=== PATIENT | male | born 1965 | race Caucasian/White ===

== ENCOUNTER 2018-12-16 19:34 | Emergency (ER) | payer OTHER, SELFPAY ==
[2018-12-16 19:35] VITALS: BP 141/74; PULSE 77; RESP 15; TEMP 36.4; O2SAT 96; BMI 32.9
--- NOTE | 2018-12-16 20:57 | ED.DCSUM_ITS ---
- ER Visit Summary Date of Service: 12/16/18 Chief Complaint: Laceration History of Present Illness: The patient is a 53 M with a laceration to his left thumb. He is right-hand dominant. This was when he was cutting watermelon. Unsure of his tetanus status. Physical Examination: 1 cm partial-thickness laceration at the left thumb distal phalanx not involving the nail. Test Results: None indicated Emergency Department Course and Treatment: Patient had washed his wound with soap and water already. This was closed with tissue adhesive. Dressing applied. Follow-up in about 7 days. Precautions discussed. Treatment Plan: As above Disposition: Discharge Impression: 1. Left thumb laceration 1 cm This note was generated with [employer]oe [employer] dictation software. It may contain incorrect words, spelling, and punctuation that were not noted in review of the chart prior to signing ED Disposition - Plan for ED Patient: Referrals: Brandon Sin MD [Primary Care Provider] -
--- NOTE | 2018-12-16 20:58 | ED.DEP ---
ED Disposition - Plan for ED Patient: Instructions: LACERATION, Extremity (Skin Glue) Referrals: Brandon Sin MD [Primary Care Provider] -
[2018-12-16 21:05] VITALS: RESP 16
== END 2018-12-16 21:08 | disposition home or self-care (01) ==
LOC: ED 21:08
PROVIDERS: Emergency Provider Emergency Medicine; Family Provider Family Medicine; PCP Family Medicine
DX: S61.012A Laceration without foreign body of left thumb without damage to nail, initial encounter (principal); W26.8XXA Contact with other sharp object(s), not elsewhere classified, initial encounter; Y93.9 Activity, unspecified; Y92.9 Unspecified place or not applicable
CPT/HCPCS: 12001; 99282

== ENCOUNTER → 2022-03-31 | Outpatient (CLI) | payer BC, SELFPAY ==
[2022-03-31 11:16] LABS: Anion Gap 9 (5-15); BUN 20 mg/dL (7-18); Calcium,Total 9.8 mg/dL (8.5-10.1); Chloride 103 mmol/L (98-107); Cholesterol 168 mg/dL (200); Creatinine, Serum 1.25 mg/dL (0.70-1.30); EST Glomerular Filtration Rate 64 mL/min (>60); Est Glom Filt Rate - Afr Amer 77 mL/min (>60); Glucose 125 mg/dL (74-106); High Density Lipoprotein 45 mg/dL; PSA,Total - Annual Screen 0.27 ng/mL (0.00-4.00); Potassium 4.2 mmol/L (3.5-5.1); Sodium Level 138 mmol/L (136-145); Triglycerides 288 mg/dL; Very Low Density Lipoprotein 58 mg/dL (5-40)
== END | disposition home or self-care (01) ==
LOC: MFPLAB 08:35
PROVIDERS: PCP Family Medicine; Referring Provider Family Medicine; Visit Provider Family Medicine
DX: Z00.00 Encounter for general adult medical examination without abnormal findings (principal); I10 Essential (primary) hypertension
CPT/HCPCS: 36415; 80048; 80061; 84153; G0103

== ENCOUNTER → 2022-11-09 | Outpatient (CLI) | payer OTHER, SELFPAY ==
[2022-11-09 13:12] LABS: Anion Gap 8 (5-15); BUN 21 mg/dL (7-18); Calcium,Total 9.3 mg/dL (8.5-10.1); Chloride 106 mmol/L (98-107); Cholesterol 155 mg/dL (200); Creatinine, Serum 1.05 mg/dL (0.70-1.30); EST Glomerular Filtration Rate 77 mL/min (>60); Est Glom Filt Rate - Afr Amer 94 mL/min (>60); Glucose 127 mg/dL (74-106); High Density Lipoprotein 42 mg/dL; Potassium 3.9 mmol/L (3.5-5.1); Sodium Level 139 mmol/L (136-145); Triglycerides 202 mg/dL; Very Low Density Lipoprotein 40 mg/dL (5-40)
== END | disposition home or self-care (01) ==
LOC: MFPLAB 10:09
PROVIDERS: PCP Family Medicine; Visit Provider Family Medicine
DX: E78.5 Hyperlipidemia, unspecified (principal)
CPT/HCPCS: 36415; 80048; 80061

== ENCOUNTER → 2023-05-09 | Outpatient (CLI) | payer OTHER, SELFPAY ==
--- OUTSIDE RECORDS SUMMARY | 2023-05-09 10:06 | XMS RPT_ITS | CCD ---
Author Name Unknown Address [address] [place] [address] Organization [facility] Care Team Providers Care Bonderite Operator Name Role Phone Juan Galindo Primary Care Provider [phone] NELLA ENRIQUEZ, TATE Langley Primary Care Physician Allergies Allergy Classification Reported Allergen(s) Allergy Type Date of Onset Reaction(s) Facility Penicillins (antibiotic) (1 source) Penicillins Drug Allergy 03-25-2011 [facility] (1 source) Penicillin V; Translations: [penicillin V potassium] Drug Allergy Unknown [facility] (1 source) Penicillins; Translations: [penicillins] Drug allergy [facility] Medications Current Medications Medication Drug Class(es) Dates Sig (Normalized) Sig (Original) amLODIPine 10 mg oral tablet (1 source) Dihydropyridine Calcium Channel Jamia Start: 06-16-2021 amLODIPine 10 mg oral tablet Dose : 10 mg = 1 tab(s), Oral, qDay, # 90 tab(s), 3 Refill(s), [facility], 165.1, cm, 06/16/21 9:25:00 EST, Height, kg, 06/16/21 9:25:00 EST, Dosing Weight Start Date: 06/16/21 Status: Ordered fenofibrate 134 mg oral capsule (2 sources) Peroxisome Proliferator Receptor alpha Agonist Start: 06-16-2021 fenofibrate 134 mg oral capsule Dose : 134 mg = 1 cap(s), Oral, qDay, This needs filled first, he will not receive mail order in time, he will be out of meds by then., # 90 cap(s), 3 Refill(s), [facility], 165.1, cm, 06/16/21 9:25:00 EST, Height, kg... Start Date: 06/16/21 Status: Ordered Completed/Discontinued Medications Medication Drug Class(es) Dates Sig (Normalized) Sig (Original) atorvastatin 20 mg oral tablet (1 source) HMG-CoA Reductase Inhibitor Start: 03-25-2011 take 1 tablet by mouth once daily atorvastatin (LIPITOR) 20 mg ORAL tablet Take 1 tablet by mouth once daily. 0 03/25/2011 Active Problems Active Problems Problem Classification Problem Date Documented Da te Episodic/Chronic Disorders of lipid metabolism (1 source) Hyperlipidemia 08-27-2020 Chronic Essential hypertension (1 source) Hypertensive disorder 06-16-2021 Chronic Other nutritional; endocrine; and metabolic disorders (1 source) Overweight 11-29-2019 Episodic Residual codes; unclassified (1 source) Sleep apnea 12-04-2018 Chronic Past or Other Problems Problem Classification Problem Date Documented Da te Episodic/Chronic Anal and rectal conditions (1 source) Anal fissure; Translations: [Anal fissure, unspecified] Onset: 03-25-2011 03-25-2011 Episodic Gastrointestinal hemorrhage (1 source) Hemorrhage of rectum and anus; Translations: [Hemorrhage of anus and rectum] Onset: 04-08-2011 04-08-2011 Episodic Hemorrhoids (2 sources) Hemorrhoids; Translations: [Unspecified hemorrhoids] Onset: 03-25-2011 03-25-2011 Episodic Other and unspecified benign neoplasm (1 source) Benign neoplasm of colon; Translations: [Benign neoplasm of colon, unspecified] Onset: 04-08-2011 04-08-2011 Episodic Other and unspecified benign neoplasm (1 source) Adenomatous polyp of rectum; Translations: [Benign neoplasm of rectum] Onset: 05-04-2011 05-04-2011 Episodic Other screening for suspected conditions (not mental disorders or infectious disease) (1 source) Patient encounter status; Translations: [Encounter for screening for malignant neoplasm of colon] Onset: 05-09-2012 05-09-2012 Episodic Results Test Name Value Interpretation Reference Range Facil ity Encounters Encounter Date Encounter Type Care Provider Facility Start: 07-26-2021 End: 07-26-2021 Patient encounter procedure TATE CARMEN MD [facility] Start: 02-13-2012 End: 02-13-2012 Telephone encounter Suleiman Morgan Work Phone: Colorectal Surgery Procedures Date Procedure Procedure Detail Performing Clinician Start: 05-31-2016 Polysomnography TATE CARMEN MD Plan of Treatment Date Care Activity Detail Author Start: 05-09-2022 Screening for malign ant neoplasm of colon [facility] Start: 12-23-2020 Influenza vaccination INFLUENZA (Sea son Ended) [facility] Start: 02-22-2017 LIPID SCREEN LIPID SCREEN [facility] Start: 01-18-2016 Screening for malign ant neoplasm of colon [facility] Start: 01-18-2016 SHINGRIX VACCINE (1 of 2) STEPHENSON GRIX VACCINE (1 of 2) [facility] Start: 02-22-2015 DIABETES SCREEN DIABETES SCREEN [facility] Start: 1985 Urine microalbumin profile DTAP,TDAP ,TD (1 - Tdap) [facility] Start: 01-18-1984 HEPATITIS C SCREENING HEPATITIS C SC REENING [facility] Start: 01-18-1984 HIV SCREENING HIV SCREENING [facility] Start: 1978 Adult depression scr ning assessment DEPRESSION SCREENING [facility] Immunizations Immunization Date Immunization Notes Care Provider Fa cility 03-19-2021 SARS-CoV-2 mRNA (tozinameran) vaccine TATE CARMEN MD [facility] 01-27-2021 influenza, injectabl e, quadrivalent, contains preservative; Translations: [Fluarix PF Quadrivalent ] TATE CARMEN MD [facility] 07-31-2020 SARS-CoV-2 (COVID-19 ) mRNA-[id number] vaccine TATE CARMEN MD [facility] Payers Date Payer Category Payer Unknown [employer] [id number] 2011-2018 PPO [id number] Social History Date Type Detail Facility Start: 03-25-2011 End: 12-04-2018 Tobacco smoking status NHIS Never smoker [facility] inic Note 04-13-2012 Telephone Encounter - Vikram Buckner - 04/13/2012 10:13 AM ESTTelephone Encounter - Oliva Contreras MA - 04/11/2012 9:57 AM ESTTelephone Encounter - Bhavna Royal - 03/08/2012 12:54 PM EST Note Date & Type Note Facility 04-13-2012 Miscellaneous Notes Patient scheduled as requested [facility] SCHEDULING/PAT [facility] ENDOSCOPY CURE FORM Patient Name:Km Carballo Her Referring Provider: Ordering provider- Dr.Gokhan Morgan / referring provider Juan Galindo MD Date and Time of procedure: for 05-09-2012 procedure @ 1130 AM Procedure: Colonoscopy/Go Lytely Diagnosis Code: 569.0 Does the patient have any of the following: Diabetes: No Pacemaker: No Does patient need antibiotics? No Kuldip Morgan M.D Had send Niharika an email no response Left message for Vikram in [facility] to see if this has been scheduled [facility] will contact patient to obtain updated h&p and other info then schedule with Dr. Morgan pt calling to get order for follow up colonoscopy would like to have this done @ [facility] please call pt when order is in so pt can call and schedule. [phone] pt cell number documented in this encounter [facility] Evaluation + Plan note Laboratory Note Date & Type Note Facility Evaluation + Plan note Future Appointments Appointment Date:07/28/2021 09:50:00 AM Scheduled Provider:TATE CARMEN MD Location:[place] Appointment Type: OV Future Scheduled TestsComplete Blood Count 08/27/20Lipid Profile 08/27/20Complete Metabolic Panel 08/27/20 [facility] Hospital course Narrative Note Date & Type Note Facility Hospital course Narrative No data available for this section [facility] Hospital Discharge instructions Note Date & Type Note Facility Hospital Discharge instructions No data available for this section [facility] Progress note Note Date & Type Note Facility Progress note No data available for this section [facility] Summary Purpose Family History No Family History Records Found Advance Directives No Advanced Directives Records Found Additional Source Comments Source Comments (unrecognize d section and content) In the event this informatio n is protected by the Federal Confidentiality of Alcohol and Drug Abuse Patient Records regulations: The Federal rules restrict any use of the information to criminally investigate or prosecute any alcohol or drug abuse patient.[facility] Reason for Visit (unrecogniz ed section and content) Care Team (unrecognized sect ion and content) Personnel Name: TATE CARMEN MD Address: [address] [place] [address]- (unrecognized sect ion and content) No Status Records Found INFORMATION SOURCE (unrecogn ized section and content) FOR RECORDS PERTAINING TO PATIENTS WHO ARE OR HAVE BEEN ENROLLED IN A CHEMICAL DEPENDENCY/SUBSTANCEABUSE PROGRAM, SOME INFORMATION MAY BE OMITTED. This clinical summary was aggregated from multiple sources. Caution should be exercised in using it in the provision of clinical care. This summary normalizes information from multiple sources, and as a consequence, information in this document may materially change the coding, format and clinical context of patient data. In addition, data may be omitted in some cases. CLINICAL DECISIONS SHOULD BE BASED ON THE PRIMARY CLINICAL RECORDS. [facility] [email or web address] [facility]. provides no warranty or guarantee of the accuracy or completeness of information in this document.
[2023-05-09 13:11] LABS: ALB/GLOB Ratio 1.5 RATIO (0.9-2.4); AST(SGOT) 36 U/L (15-37); Alanine Aminotransfer ALT/SGPT 40 U/L (16-61); Albumin, Serum 4.4 g/dL (3.2-5.0); Alkaline Phosphatase 51 U/L (45-117); Anion Gap 9 (5-15); BUN 13 mg/dL (7-18); BUN/Creat Ratio 11.6 RATIO (10-20); Calcium,Total 9.2 mg/dL (8.5-10.1); Chloride 104 mmol/L (98-107); Cholesterol 132 mg/dL (200); Creatinine, Serum 1.12 mg/dL (0.70-1.30); EST Glomerular Filtration Rate 72 mL/min (>60); Est Glom Filt Rate - Afr Amer 87 mL/min (>60); Globulin 2.9 g/dL (2.2-4.2); Glucose 116 mg/dL (74-106); High Density Lipoprotein 46 mg/dL; Potassium 3.9 mmol/L (3.5-5.1); Protein, Total 7.3 g/dL (6.4-8.2); Sodium Level 136 mmol/L (136-145); Triglycerides 167 mg/dL; Very Low Density Lipoprotein 33 mg/dL (5-40)
== END | disposition home or self-care (01) ==
LOC: MFPLAB 09:41
PROVIDERS: PCP Family Medicine; Visit Provider Family Medicine
DX: I10 Essential (primary) hypertension (principal)
CPT/HCPCS: 36415; 80053; 80061

== ENCOUNTER → 2023-11-16 | Outpatient (CLI) | payer OTHER, SELFPAY ==
[2023-11-16 12:55] LABS: Anion Gap 9 (5-15); BUN 19 mg/dL (7-18); BUN/Creat Ratio 16.4 RATIO (10-20); Calcium,Total 9.6 mg/dL (8.5-10.1); Chloride 104 mmol/L (98-107); Cholesterol 148 mg/dL (200); Creatinine, Serum 1.16 mg/dL (0.70-1.30); EST Glomerular Filtration Rate 69 mL/min (>60); Est Glom Filt Rate - Afr Amer 83 mL/min (>60); Glucose 121 mg/dL (74-106); High Density Lipoprotein 43 mg/dL; Sodium Level 135 mmol/L (136-145); Triglycerides 233 mg/dL; Very Low Density Lipoprotein 47 mg/dL (5-40)
== END | disposition home or self-care (01) ==
LOC: MTLAB 09:52
PROVIDERS: PCP Family Medicine; Referring Provider Family Medicine; Visit Provider Family Medicine
DX: I10 Essential (primary) hypertension (principal)
CPT/HCPCS: 36415; 80048; 80061

== ENCOUNTER → 2024-03-06 | Outpatient (CLI) | payer OTHER, SELFPAY ==
[2024-03-06 10:48] LABS: Anion Gap 8 (5-15); BUN 24 mg/dL (7-18); BUN/Creat Ratio 20.9 RATIO (10-20); Calcium,Total 9.6 mg/dL (8.5-10.1); Chloride 105 mmol/L (98-107); Creatinine, Serum 1.15 mg/dL (0.70-1.30); EST Glomerular Filtration Rate 69 mL/min (>60); Est Glom Filt Rate - Afr Amer 84 mL/min (>60); Glucose 130 mg/dL (74-106); Potassium 3.7 mmol/L (3.5-5.1); Sodium Level 137 mmol/L (136-145)
== END | disposition home or self-care (01) ==
LOC: MFPLAB 08:02
PROVIDERS: PCP Family Medicine; Visit Provider Family Medicine
DX: R73.01 Impaired fasting glucose (principal)
CPT/HCPCS: 36415; 80048

== ENCOUNTER → 2024-08-15 | Outpatient (CLI) | payer OTHER, SELFPAY ==
[2024-08-15 10:32] LABS: ALB/GLOB Ratio 2.1 RATIO (0.9-2.4); AST(SGOT) 28 U/L (<=37); Alanine Aminotransfer ALT/SGPT 26 U/L (<=46); Albumin, Serum 4.7 g/dL (3.5-5.0); Alkaline Phosphatase 50 U/L (40-129); Anion Gap 13 (5-15); BUN 21 mg/dL (4-19); BUN/Creat Ratio 21.1 RATIO (10-20); Calcium,Total 9.8 mg/dL (7.6-11.0); Carbon Dioxide 23.5 mmol/L (21.0-32.0); Chloride 100 mmol/L (98-108); Creatinine, Serum 1.01 mg/dL (0.70-1.20); EST Glomerular Filtration Rate 86 (>60); Globulin 2.3 g/dL (2.2-4.2); Glucose 130 mg/dL (70-99); Potassium 3.9 mmol/L (3.3-5.1); Sodium Level 136 mmol/L (133-145); Total Bilirubin 0.39 mg/dL (0.00-1.30)
[2024-08-15 10:49] LABS: Microalbumin,Random Urine < 12.0 mg/L (NO RANGE EST.); Microalbumin:Creatinine Ratio UNABLE TO CALCULATE mg/g CRE
== END | disposition home or self-care (01) ==
PROVIDERS: PCP Family Medicine; Referring Provider Family Medicine; Visit Provider Family Medicine
DX: I10 Essential (primary) hypertension (principal)
CPT/HCPCS: 36415; 80053; 82043; 82570